=== PATIENT | male | born 1985 | race Caucasian/White ===

== ENCOUNTER 2022-05-29 20:29 | Emergency (ER) | payer OTHER ==
[2022-05-29] MEDS ORDERED: solu-MEDROL 125 MG, Sterile H2O 10 ml 2 ML IV ONE ×2 (20:41)
[2022-05-29] MEDS ORDERED: DUONEB 0.5-3 MG/3 ml Neb IH ONE ×2 (20:41→20:43)
[2022-05-29 20:53] LABS: Absolute Neutrophil Ct (ANC) 3.24 x10^3/uL (1.4-6.9); Basophil (Absolute #) 0.04 x10^3/uL (0-0.4); Eosinophil % 0.3 % (0.00-5.0); Eosinophil (Absolute #) 0.02 x10^3/uL (0-0.5); Hematocrit 42.3 % (42-50); Hemoglobin 14.9 g/dL (12.5-18.0); Lymphocyte (Absolute #) 3.31 x10^3/uL (1.0-4.6); Lymphocytes % 42.9 % (24.0-44.0); Mean Corpuscular Hemoglobin 32.4 pg (26-32); Mean Corpuscular Hgb Concent. 35.2 g/dL (32-36); Monocyte (Absolute #) 1.08 x10^3/uL (0.0-1.3); Platelet Count 197 x10^3/uL (150-450); Red Cell Distribution Width 12.8 % (11.5-14.0); White Blood Count 7.7 x10^3/uL (4.0-10.5)
[2022-05-29 21:07] LABS: ALBUMIN 4.6 g/dL (3.5-5.0); ALKALINE PHOSPHATASE 86 U/L (38-126); ANION GAP 16.2 MEQ/L (5-15); BLOOD UREA NITROGEN 14 mg/dL (9-20); CHLORIDE 100 mmol/L (98-107); Calcium 8.4 mg/dL (8.4-10.2); Carbon Dioxide 19 mmol/L (22-30); Creatinine 1 0.64 mg/dL (0.66-1.25); EST GLOMERULAR FILTRATION RATE > 60.0 ML/MIN; Glucose 147 mg/dL (74-106); SGOT/AST 47 U/L (17-59); SGPT/ALT 34 U/L (0-50); SODIUM 132 mmol/L (137-145)
[2022-05-29] MEDS ORDERED: solu-MEDROL ONE (21:13)
[2022-05-29] MEDS ORDERED: Sterile H2O 10 ml IJ ONE (21:13)
--- NOTE | 2022-05-29 21:27 | XRAY ---
Indication: Short of breath. Comparison: None Portable chest hyperinflated with small peripheral right base calcified granuloma. Remaining heart, lungs, and bony thorax unremarkable.
[2022-05-29 22:53] LABS: INFLUENZA B NEGATIVE (NEGATIVE); RESPIRATORY SYNCTIAL VIRUS NEGATIVE (Negative); SARS-CoV-2 Xpert Express NEGATIVE (NEGATIVE)
[2022-05-29 22:54] LABS: INFLUENZA A POSITIVE (NEGATIVE)
[2022-05-29] MEDS ORDERED: Tamiflu 75MG Capsule PO ONE ×2 (23:00→23:06)
--- NOTE | 2022-05-29 23:49 | ERPHSYRPT ---
- History of Present Illness Time Seen by Provider: 05/29/22 20:41 Source: patient Exam Limitations: no limitations Patient Subjective Stated Complaint: pt states that bug spray- [place], had been sprayed in the kitchen earlier today. after s/o turned oven on, they both s tarted having some shortness of breath and coughing Triage Nursing Assessment: pt alert and oriented, answers questions approp. pt ambulates back to rrom with steady gait noted. pt with persitent hacking cough noted. lung sounds cta. skin warm and dry. 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 Patient does report having fever chills and cough going on for last couple of days along with congestion headache and body aches. Timing/Duration: hour(s) (0.5), gradual onset, worse Severity of Dyspnea-Max: moderate Severity of Dyspnea-Current: moderate Possible Cause: irritant gases exposure Modifying Factors: Worsens With: coughing, exertion Associated Symptoms: cough, chest pain/discomfort, fever, wheezing, tightness Allergies/Adverse Reactions: No Known Drug Allergies Allergy (Verified 05/29/22 20:38) Hx Tetanus, Diphtheria Vaccination/Date Given: Yes Hx Influenza Vaccination/Date Given: No Hx Pneumococcal Vaccination/Date Given: No Immunizations Up to Date: Yes Travel Risk - International Travel Have you traveled outside of the country in past 3 weeks: No - Coronavirus Screening Are you exhibiting any of the following symptoms?: Yes Symptoms: Cough: New Onset, Shortness of Breath Close contact with a COVID-19 positive Pt in past 14-21 Days: No - Vaccine Status Have you recieved a Covid-19 vaccination: No - Review of Systems Constitutional: Fever, Chills Eyes: No Symptoms Ears, Nose, & Throat: Nose Congestion, Throat Swelling Respiratory: Cough, Dyspnea Cardiac: No Symptoms Abdominal/Gastrointestinal: No Symptoms Genitourinary Symptoms: No Symptoms Musculoskeletal: No Symptoms Skin: No Symptoms Neurological: Headache Psychological: No Symptoms Endocrine: No Symptoms Hematologic/Lymphatic: No Symptoms - Past Medical History Pertinent Past Medical History: Yes Neurological History: No Pertinent History Cardiac History: No Pertinent History Respiratory History: Bronchitis Endocrine Medical History: No Pertinent History Musculoskeletal History: No Pertinent History Other Medical History: No history of pain in the t-spine. - Past Surgical History Past Surgical History: Yes Musculoskeletal: Orthopedic Surgery - Social History Smoking Status: Current every day smoker How long have you smoked: 20yrs Exposure to second hand smoke: No Drug Use: none Patient Lives Alone: No - Nursing Vital Signs Nursing Vital Signs: Initial Vital Signs Temperature 100.5 F 05/29/22 20:38 Pulse Rate 145 H 05/29/22 20:38 Respiratory Rate 28 H 05/29/22 20:38 Blood Pressure 121/91 05/29/22 20:38 O2 Sat by Pulse Oximetry 97 05/29/22 20:38 Pain Scale Pain Intensity 4 - Physical Exam General Appearance: mild distress, alert, anxiety Eye Exam: PERRL/EOMI, eyes nml inspection Ears, Nose, Throat Exam: hearing grossly normal, nasal congestion, pharyngeal erythema Neck Exam: normal inspection, supple, full range of motion Respiratory Exam: airway intact, wheezing Cardiovascular/Chest Exam: normal heart sounds, tachycardia Abdominal/Gastrointestinal Exam: soft, normal bowel sounds, No tenderness Extremity Exam: non-tender, normal range of motion Neurologic Exam: alert, oriented x 3, cooperative Skin Exam: normal color SpO2 Interpretation: normal SpO2: 99 O2 Delivery: Room Air - Course EKG Interpreted by Me: RATE (125), Sinus Tach, NORMAL AXIS, NORMAL INTERVALS, Non-specific ST Changes Ordered Tests: Active Orders 24 hr Category Date Time Status EKG-ER Only STAT Care 05/29/22 20:41 Active IV Insertion STAT Care 05/29/22 20:41 Active Oxygen-ED Only Nasal Cannula 2 lpm Care 05/29/22 20:41 Active CHEST 1 VIEW (PORTABLE) Stat Exams 05/29/22 20:42 Completed CBC W DIFF Stat Lab 05/29/22 20:50 Completed CMP Stat Lab 05/29/22 20:50 Completed Respiratory Therapy Assessment DAILY RT 05/29/22 20:53 Active Medication Summary Discontinued Medications Generic Name Dose Route Start Last Admin Trade Name Freq PRN Reason Stop Dose Admin Albuterol/Ipratropium 3 ml 05/29/22 20:41 05/29/22 20:40 Ipratropium/Albuterol Sulfate 3 Ml Ampul.Neb IH 05/29/22 20:42 3 ml STAT ONE Administration Albuterol/Ipratropium Confirm 05/29/22 20:43 Ipratropium/Albuterol Sulfate 3 Ml Ampul.Neb Administered 05/29/22 20:44 Dose 3 ml IH .STK-MED ONE Methylprednisolone Sodium 0 mg 05/29/22 20:41 05/29/22 21:13 Succinate 125 mg/ Sterile IV 05/29/22 20:42 125 mg Water 2 ml STAT ONE Administration Methylprednisolone Sodium Succinate Confirm 05/29/22 21:13 Methylprednis Sod Succ 125 Mg/2 Ml Vial Administered 05/29/22 21:14 Dose 125 mg .ROUTE .STK-MED ONE Oseltamivir Phosphate 75 mg 05/29/22 23:00 05/29/22 23:10 Oseltamivir 75 Mg Cap PO 05/29/22 23:01 75 mg STAT ONE Administration Oseltamivir Phosphate Confirm 05/29/22 23:06 Oseltamivir 75 Mg Cap Administered 05/29/22 23:07 Dose 75 mg PO .STK-MED ONE Sterile Water Confirm 05/29/22 21:13 Water For Injection,Sterile 10 Ml Vial Administered 05/29/22 21:14 Dose 10 ml IJ .STK-MED ONE Lab/Rad Data: Laboratory Result Diagrams 05/29/22 20:50 05/29/22 20:50 Laboratory Results 05/29/22 05/29/22 05/29/22 Range/Units 22:15 20:50 20:50 WBC 7.7 (4.0-10.5) x10^3/uL RBC 4.60 (4.1-5.6) x10^6/uL Hgb 14.9 (12.5-18.0) g/dL Hct 42.3 (42-50) % MCV 92.0 (78-100) fL MCH 32.4 H (26-32) pg MCHC 35.2 (32-36) g/dL RDW 12.8 (11.5-14.0) % Plt Count 197 (150-450) x10^3/uL MPV 9.0 (7.5-11.0) fL Gran % 42.0 (36.0-66.0) % Immature Gran % (Auto) 0.3 (0.00-0.4) % Nucleat RBC Rel Count 0.0 (0.00-0.1) % Eos # (Auto) 0.02 (0-0.5) x10^3/uL Immature Gran # (Auto) 0.02 (0.00-0.03) x10^3u/L Absolute Lymphs (auto) 3.31 (1.0-4.6) x10^3/uL Absolute Monos (auto) 1.08 (0.0-1.3) x10^3/uL Absolute Nucleated RBC 0.00 (0.00-0.01) x10^3u/L Lymphocytes % 42.9 (24.0-44.0) % Monocytes % 14.0 H (0.0-12.0) % Eosinophils % 0.3 (0.00-5.0) % Basophils % 0.5 (0.0-0.4) % Absolute Granulocytes 3.24 (1.4-6.9) x10^3/uL Basophils # 0.04 (0-0.4) x10^3/uL Sodium 132 L (137-145) mmol/L Potassium 4.0 (3.5-5.1) mmol/L Chloride 100 (98-107) mmol/L Carbon Dioxide 19 L (22-30) mmol/L Anion Gap 16.2 H (5-15) MEQ/L BUN 14 (9-20) mg/dL Creatinine 0.64 L (0.66-1.25) mg/dL Estimated GFR > 60.0 ML/MIN Glucose 147 H (74-106) mg/dL Calcium 8.4 (8.4-10.2) mg/dL Total Bilirubin 0.30 (0.2-1.3) mg/dL AST 47 (17-59) U/L ALT 34 (0-50) U/L Alkaline Phosphatase 86 (38-126) U/L Serum Total Protein 8.0 (6.3-8.2) g/dL Albumin 4.6 (3.5-5.0) g/dL Influenza Type A Ag POSITIVE (NEGATIVE) Influenza Type B Ag NEGATIVE (NEGATIVE) RSV (PCR) NEGATIVE (Negative) SARS-CoV-2 (PCR) NEGATIVE (NEGATIVE) - Progress Progress: improved Air Movement: good Progress Note: 05/29/22 02:48 is given Solu-Medrol and breathing treatment, on reevaluation feeling much better. I will call poison control who recommended if patient is back to his baseline can be discharged. X-rays negative. Baseline work-up unremarkable except for positive influenza A and started on Tamiflu. We will continue with Tamiflu to go home and give inhaler to use as needed as well. Patient is back to his baseline and is stable for discharge. Blood Culture(s) Obtained: No Antibiotics given: No Counseled pt/family regarding: lab results, diagnosis, need for follow-up, rad results, smoking cessation - Departure Departure Disposition: Home Clinical Impression: Exposure to chemical inhalation, Influenza A Condition: Stable Critical Care Time: No Referrals: REUBEN HENNING [Primary Care Provider] - Follow Up with PCP/3 days Instructions: Shortness of Breath (Dyspnea) (DC), Flu, Adult (DC) Additional Instructions: Do not smoke. Use inhaler as needed. Follow-up with primary care for reevaluation. Take Tylenol/ibuprofen as needed for fever, body aches. Return to ER for any worsening. Prescriptions: Albuterol Sulfate [Albuterol Sulfate Hfa] 8.5 gm IH Q6H PRN 7 Days #1 inh PRN Reason: Cough Oseltamivir 75 mg [Tamiflu 75MG Capsule] 75 mg PO BID #10 cap
[2022-05-30 01:12] VITALS: BP 109/67; PULSE 78; O2SAT 98
== END 2022-05-30 01:19 | disposition home or self-care (01) ==
LOC: ED 20:29
DX: T59.891A Toxic effect of other specified gases, fumes and vapors, accidental (unintentional), initial encounter (principal); R06.02 Shortness of breath; Y92.000 Kitchen of unspecified non-institutional (private) residence as the place of occurrence of the external cause; J10.1 Influenza due to other identified influenza virus with other respiratory manifestations; R05.9 Cough, unspecified; K11.7 Disturbances of salivary secretion; R50.9 Fever, unspecified; R09.81 Nasal congestion; R51.9 Headache, unspecified; Z72.0 Tobacco use; Z28.310 Unvaccinated for COVID-19
CPT/HCPCS: 0241U; 36000; 36415; 71045; 80053; 85025; 93005; 94640; 96374; 99284; J2930; A9270-GY